=== PATIENT | female | born 1970 | race African-American/Black ===

== ENCOUNTER 2017-11-18 12:59 | Emergency (ER) | payer OTHER ==
[2017-11-18 14:39] LABS: ADD MAN DIFF? NO
[2017-11-18 14:41] LABS: BASO # 0.1 x10^3/uL (0.0-0.2); BASO % 1 % (0-3); EOS # 0.4 x10^3/uL (0.0-0.7); EOS % 6 % (0-3); HEMATOCRIT 35.9 % (36.0-47.0); LYMPH # 2.6 x10^3/uL (1.0-4.8); LYMPH % 38 % (24-48); MEAN CORPUSCULAR HEMOGLOBIN 25 pg (25-35); MEAN CORPUSCULAR HGB CONC 34 g/dL (31-37); MEAN CORPUSCULAR VOLUME 75 fL (79-100); MONO # 0.6 x10^3/uL (0.0-1.1); MONO % 9 % (0-9); NEUT # 3.2 x10^3uL (1.8-7.7); NEUT % 47 % (31-73); PLATELET COUNT 313 x10^3/uL (140-400); WHITE BLOOD COUNT 6.9 x10^3/uL (4.0-11.0)
[2017-11-18 14:53] LABS: ANION GAP 9 (6-14); BLOOD UREA NITROGEN 10 mg/dL (7-20); BUN/CREATININE RATIO 13 (6-20); CALCIUM 8.6 mg/dL (8.5-10.1); CARBON DIOXIDE 29 mmol/L (21-32); CHLORIDE 101 mmol/L (98-107); CREATININE 0.8 mg/dL (0.6-1.0); GLUCOSE 87 mg/dL (70-99); POTASSIUM 3.8 mmol/L (3.5-5.1); SODIUM 139 mmol/L (136-145)
[2017-11-18 14:58] LABS: ALBUMIN 3.2 g/dL (3.4-5.0); ALBUMIN/GLOBULIN RATIO 0.7 (1.0-1.7); ALK PHOS 76 U/L (46-116); ALT (SGPT) 17 U/L (14-59); AST (SGOT) 35 U/L (15-37); MAGNESIUM 1.6 mg/dL (1.8-2.4); TOTAL BILIRUBIN 0.3 mg/dL (0.2-1.0); TOTAL PROTEIN 7.8 g/dL (6.4-8.2)
[2017-11-18] MEDS: IBUPROFEN 600 MG TABLET. PO ×2 (15:14)
== END 2017-11-18 17:00 | disposition home or self-care (01) ==
LOC: ER 12:59
DX: R51 Headache (principal); I10 Essential (primary) hypertension
CPT/HCPCS: 36415; 80053; 83735; 84443; 85025; 93005; 99285-25

== ENCOUNTER 2017-12-22 15:54 | Emergency (ER) | payer OTHER ==
[2017-12-22] MEDS ORDERED: DIPHTH,PERTUSS(ACELL),TET TOX 0.5 ML DISP.SYRIN. VAX IM (17:00)
== END 2017-12-22 17:20 | disposition home or self-care (01) ==
LOC: ER 15:54
DX: S61.305A Unspecified open wound of left ring finger with damage to nail, initial encounter (principal); I10 Essential (primary) hypertension; W45.8XXA Other foreign body or object entering through skin, initial encounter; Y93.89 Activity, other specified; Y99.8 Other external cause status; Y92.89 Other specified places as the place of occurrence of the external cause
CPT/HCPCS: 99283